=== PATIENT | male | born 1950 | race Two or more races ===

== ENCOUNTER 2018-05-31 11:41 | Emergency (ER) | payer MEDICARE ==
[~2018-05-31] VITALS: Ht 172.7 cm; Wt 68.0 kg
--- NOTE | 2018-05-31 12:10 | NUR ---
PATIENT CAME TO ER AMBULATORY. C/O SOB AND DYSPNEA SINCE ARRIVING FROM THE [facility]. PATIENT AAO X 3, NO ACUTE DISTRESS AT THIS TIME. AT BEDSIDE
--- NOTE | 2018-05-31 12:15 | NUR ---
DR. MARTINEZ AT BEDSIDE
[2018-05-31 12:21] LABS: BASOPHILS % (AUTO) 0.3 % (0.0-2.0); EOSINOPHILS % (AUTO) 0.4 % (0.0-6.0); HEMATOCRIT 34 % (39-51); HEMOGLOBIN 11.1 g/dL (13.5-17.5); LYMPHOCYTES # (AUTO) 0.5 /CMM (0.8-4.8); LYMPHOCYTES % (AUTO) 6.1 % (20.0-44.0); MEAN CORPUSCULAR HGB CONC 33 g/dl (31.0-36.0); MEAN CORPUSCULAR VOLUME 92 fL (80-96); MONOCYTES # (AUTO) 0.8 /CMM (0.1-1.30); MONOCYTES % (AUTO) 9.4 % (2.0-12.0); NEUTROPHILS # (AUTO) 7.3 /CMM (1.8-8.9); NEUTROPHILS % (AUTO) 83.8 % (43.0-81.0); PLATELET COUNT (AUTO) 246 /CMM (150-450); RED BLOOD CELL COUNT(AUTO) 3.69 MIL/uL (4.5-6.0); WHITE BLOOD COUNT (AUTO) 8.8 K/uL (4.3-11.0)
[2018-05-31 12:29] LABS: CALCIUM, SERUM 8.8 mg/dL (8.5-10.1); CREATININE 0.9 mg/dL (0.6-1.3); POTASSIUM 3.8 mmol/L (3.5-5.1)
[2018-05-31] MEDS ORDERED: [UNRECOGNIZED DRUG - OTHER] PO (12:50)
[2018-05-31] MEDS ORDERED: TRIMETAZIDINE PO (12:50)
[2018-05-31] MEDS ORDERED: OXYC10TA49 PO (12:50)
[2018-05-31] MEDS ORDERED: MULT-24 PO (12:50)
[2018-05-31] MEDS ORDERED: VITA1TAB56 PO (12:50)
[2018-05-31] MEDS ORDERED: RIVA10TA PO (12:50)
[2018-05-31] MEDS ORDERED: PREG150C PO (12:50)
[2018-05-31] MEDS ORDERED: IOHEXOL-350 100 ML VIAL IV ONE (13:09)
[2018-05-31] MEDS ORDERED: IV NS 0.9% 250 ML IV ONE (13:09)
[2018-05-31] MEDS ORDERED: CT SWABBABLE VALVE TRANS SET 1 EA INFUS.SET MC ONE (13:09)
[2018-05-31] MEDS ORDERED: MORPHINE SULFATE INJ 2 MG/ML DISP.SYRIN ONE (15:51)
[2018-05-31] MEDS ORDERED: ONDANSETRON HCL/PF 4 MG/2 ML VIAL ONE (15:51)
[2018-05-31] MEDS ORDERED: MORPHINE SULFATE INJ 2 MG/ML DISP.SYRIN IV ONE (16:00)
[2018-05-31] MEDS ORDERED: ONDANSETRON HCL/PF 4 MG/2 ML VIAL IV ONE (16:00)
--- NOTE | 2018-05-31 16:29 | NUR ---
Report given to Marva HUMPHRIES for continuity of care
--- NOTE | 2018-05-31 17:45 | NUR ---
DR ENRIQUE AT BEDSIDE
--- NOTE | 2018-05-31 18:29 | NUR ---
IV removed. Catheter intact and site benign. Pressure and 4x4 applied to site. No bleeding noted.
--- NOTE | 2018-05-31 18:30 | NUR ---
PT. VERBALIZED UNDERSTANDING OF AFTERCARE INSTRUCTIONS.Patient discharged to home in stable condition. Written and verbal after care instructions given. Patient verbalizes understanding of instruction.
[2018-05-31 18:42] VITALS: BP 130/70
[2018-06-01] MEDS ORDERED: OXYCODONE IR PO (10:12)
[2018-06-01] MEDS ORDERED: AMLO5TAB9 PO (11:02)
== END 2018-05-31 18:44 | disposition home or self-care (01) ==
LOC: ER 11:47 → UNDOADMIN 16:04 → TELE 16:04
DX: J90 Pleural effusion, not elsewhere classified (principal); R06.00 Dyspnea, unspecified; Z85.89 Personal history of malignant neoplasm of other organs and systems
CPT/HCPCS: 36415; 71045; 71275; 80048; 82040; 84484; 85025; 85730; 93005; 93307; 96374; 96375; 99284; J2270; J2405; J7050; Q9967

== ENCOUNTER 2018-06-01 09:04 | Inpatient (IN) | payer MEDICARE ==
[~2018-06-01] VITALS: Ht 167.6 cm; Wt 76.2 kg
[~2018-06-01 09:04] MED LIST: MULT-24 PO; OXYC10TA49 PO; PREG150C PO; RIVA10TA PO; TRIMETAZIDINE PO; VITA1TAB56 PO; [UNRECOGNIZED DRUG - OTHER] PO
--- NOTE | 2018-06-01 09:15 | NUR ---
PT BIB C/O SOB SINCE LAST NIGHT "I FEEL LIKE I COULDN'T BREATH", PT IS AAOX4, NOTED SHORTNESS OF BREATH, HOOKED TO 02 AT 2LPM VIA NC, V/S STABLE, HOOKED TO MONITOR, KEPT RESTED AND COMFORTABLE, WILL CONTINUE TO MONITOR.
--- NOTE | 2018-06-01 09:30 | NUR ---
SEEN AND EXAMINED BY DR. BROWN.
--- NOTE | 2018-06-01 09:31 | NUR ---
IV LINE ESTABLISHED, LABS DRAWNED AND SENT TO LAB.
--- NOTE | 2018-06-01 09:34 | NUR ---
OPTICAL LATHE OPERATOR AT BEDSIDE FOR XRAY.
[2018-06-01 09:53] LABS: CALCIUM, SERUM 8.6 mg/dL (8.5-10.1); CREATININE 1.1 mg/dL (0.6-1.3); POTASSIUM 3.8 mmol/L (3.5-5.1)
[2018-06-01 09:54] LABS: BASOPHILS # (AUTO) 0.1 /CMM (0.0-0.2); BASOPHILS % (AUTO) 0.6 % (0.0-2.0); EOSINOPHILS % (AUTO) 0.6 % (0.0-6.0); HEMATOCRIT 34 % (39-51); HEMOGLOBIN 11.4 g/dL (13.5-17.5); LYMPHOCYTES # (AUTO) 0.5 /CMM (0.8-4.8); LYMPHOCYTES % (AUTO) 5.4 % (20.0-44.0); MEAN CORPUSCULAR HGB CONC 34 g/dl (31.0-36.0); MEAN CORPUSCULAR VOLUME 91 fL (80-96); MONOCYTES # (AUTO) 0.8 /CMM (0.1-1.30); MONOCYTES % (AUTO) 9.4 % (2.0-12.0); NEUTROPHILS # (AUTO) 7.4 /CMM (1.8-8.9); PLATELET COUNT (AUTO) 263 /CMM (150-450); RED BLOOD CELL COUNT(AUTO) 3.71 MIL/uL (4.5-6.0); WHITE BLOOD COUNT (AUTO) 8.8 K/uL (4.3-11.0)
[2018-06-01] MEDS ORDERED: OXYCODONE IR PO (10:12)
[2018-06-01] MEDS ORDERED: AMLO5TAB9 PO (11:02)
[2018-06-01] MEDS ORDERED: oxyCODONE HCL SR 10MG TAB.SR.12H PO SCH (15:00)
--- NOTE | 2018-06-01 15:27 | NUR ---
CALLED NURSING SUP. FOR TELE BED
--- NOTE | 2018-06-01 15:52 | NUR ---
TELE 108
[2018-06-01 16:00] VITALS: BP 136/91
--- NOTE | 2018-06-01 16:00 | NUR ---
REPORT GIVEN TO KRISTEL HIGHTOWER FOR KENDAL.
[2018-06-01 16:25] VITALS: BP 136/91
--- NOTE | 2018-06-01 16:25 | NUR ---
RN NOTE: RECEIVED PATIENT IN ROOM 108, PATIENT WAS TRANSPORTED VIA STRETCHER ACCOMPANIED BY THE ER NURSE, KRISHAN AND MARCY, PATIENT'S SON. PATIENT ALERT, ORIENTED AND VERBALLY RESPONSIVE. ON O2 2L/MIN VIA NC SATURATING 95%. DENIED ANY PAIN AT THIS TIME. PATIENT WALKED TO HIS BED AND WAS PLACED ON A UPRIGHT POSITION. COMPLETE BODY ASSESSMENT WAS DONE. AFEBRILE. SKIN WARM TO TOUCH. (R) AC 20G WAS NOTED PATENT AND INTACT WITH TRANSPARENT DRESSING. ATTACHED PATIENT TO THE ASSOCIATE DEAN SR HR= 85. BED LOCKED AT ALL TIMES AND PLACED ON THE LOWEST POSITION. CALL LIGHT WITHIN REACH. NEEDS ANTICIPATED. CALLED AND PAGED DR. ENRIQUE IN ORDER TO INFORM HIM ABOUT THE PATIENT'S ADMISSION TO THE UNIT AND FOR ADMITTING ORDERS. PATIENT'S HOME MEDICATIONS WERE LISTED ON THE SYSTEM FOR THE MD TO DO MED. RECONCILIATION. MRSA NARE SWABBING DONE AT ER.
[2018-06-01] MEDS ORDERED: ZOLPIDEM TARTRATE 5 MG TABLET PO PRN (17:30)
--- NOTE | 2018-06-01 19:25 | NUR ---
RN NOTE: BEDSIDE REPORT GIVEN TO THE PM SHIFT NURSE FOR CONTINUITY OF CARE. PATIENT WAS ASLEEP AT THE BED WITH HIS , ERLL PRESENT AT THE BEDSIDE.
[2018-06-01 20:00] VITALS: BP 136/79
[2018-06-01] MEDS: PREGABALIN 25 MG CAPSULE PO SCH (20:08)
[2018-06-01] MEDS: PREGABALIN 100 MG CAPSULE PO SCH (20:08)
[2018-06-02] VITALS: BP 123/69
[2018-06-02 04:00] VITALS: BP 144/86
--- NOTE | 2018-06-02 05:49 | NUR ---
RN NOTES RECEIVED PATIENT AWAKE IN BED WITH FAMILY AT BEDSIDE. NO DISTRESS NOTED. BREATHING EVEN AND UNLABORED. 02 VIA NASAL CANNULA WELL TOLERATED. FOR PLEURX INSERTION IN AM. NPO AFTER MIDNIGHT. VITAL SIGNS WNL. PATIENT'S HOME MED TRIMETAZIDINE 35MG IS NOT AVAILABLE IN [place]. WILL ENDORSE TO ASK MD'S RECOMMENDATION FOR REPLACEMENT. CONSENT SIGNED. WILL ENDORSE TO NEXT SHIFT FOR CONTINUITY OF CARE.
[2018-06-02 06:22] LABS: ALBUMIN 2.6 g/dL (3.4-5.0); BILIRUBIN,TOTAL 0.6 mg/dL (0.2-1.0); CALCIUM, SERUM 8.6 mg/dL (8.5-10.1); CREATININE 0.8 mg/dL (0.6-1.3); MAGNESIUM 2.1 mg/dL (1.8-2.4); PHOSPHORUS 3.8 mg/dL (2.5-4.9)
[2018-06-02 06:57] LABS: BASOPHILS % (AUTO) 0.5 % (0.0-2.0); EOSINOPHILS % (AUTO) 1.2 % (0.0-6.0); HEMATOCRIT 25 % (39-51); HEMOGLOBIN 8.4 g/dL (13.5-17.5); LYMPHOCYTES # (AUTO) 0.5 /CMM (0.8-4.8); LYMPHOCYTES % (AUTO) 7.5 % (20.0-44.0); MEAN CORPUSCULAR HGB CONC 34 g/dl (31.0-36.0); MEAN CORPUSCULAR VOLUME 93 fL (80-96); MONOCYTES # (AUTO) 0.8 /CMM (0.1-1.30); MONOCYTES % (AUTO) 11.9 % (2.0-12.0); NEUTROPHILS # (AUTO) 5.6 /CMM (1.8-8.9); NEUTROPHILS % (AUTO) 78.9 % (43.0-81.0); PLATELET COUNT (AUTO) 160 /CMM (150-450); RED BLOOD CELL COUNT(AUTO) 2.71 MIL/uL (4.5-6.0); WHITE BLOOD COUNT (AUTO) 7.2 K/uL (4.3-11.0)
--- NOTE | 2018-06-02 07:35 | NUR ---
RN NOTE: RECEIVED PATIENT IN BED, AWAKE, ALERT AND VERBALLY RESPONSIVE. ON O2 2L/MIN VIA NC SATURATING 96%. DENIED ANY PAIN AT THIS TIME. BED ON LOWEST POSITION AND LOCKED AT ALL TIMES. ON RACK CLEANER SR HR= 85. (R) AC IV SITE NOTED PATENT AND INTACT. CALL LIGHT WITHIN REACH. NEEDS ANTICIPATED. PATIENT AWAITING FOR THE PLEURX INSERTION WITH DR. HATHAWAY TODAY.
--- NOTE | 2018-06-02 07:55 | NUR ---
RN NOTE: RECEIVED AN ORDER FROM DR. ENRIQUE TO KEEP THE PATIENT NPO. ORDER, NOTED AND CARRIED OUT. PATIENT MADE AWARE.
[2018-06-02 08:00] VITALS: BP 132/75
--- NOTE | 2018-06-02 08:14 | NUR ---
RN NOTE: DR. ENRIQUE PRESENT IN THE UNIT AT THIS TIME. CLARIFIED WITH HIM IF PATIENT CAN TAKE HIS PO MEDICATIONS INCLUDING A BP MED (NORVASC). PER MD, OK TO KEEP NPO EXCEPT MEDS. ORDER CLARIFIED, NOTED AND CARRIED OUT. PATIENT MADE AWARE.
[2018-06-02] MEDS: MULTIVITAMINS,THERAGRAN 1 UDTAB TABLET PO SCH (08:41)
[2018-06-02] MEDS: VITAMIN B COMP W-C 1 TAB TABLET PO SCH (08:41)
[2018-06-02] MEDS ORDERED: AMLODIPINE BESYLATE 5 MG TABLET PO SCH (09:00)
[2018-06-02] MEDS ORDERED: ANESTHESIA TRAY IN PYXIS 1 EA TRAY MC ONE (09:48)
[2018-06-02] MEDS ORDERED: LIDOCAINE HCL/PF 1% 30 ML SDV ONE (09:48)
[2018-06-02] MEDS ORDERED: HEPARIN SODIUM, PORCINE 1,000 UNIT/ML VIAL ONE (09:48)
[2018-06-02] MEDS: HYDROCODONE/APAP 10/325MG 1 EA TABLET PO PRN ×3 (10:00→19:46)
--- NOTE | 2018-06-02 11:33 | NUR ---
RN NOTE: INFORMED DR. ENRIQUE THAT ACCORDING TO THE SURGERY DEPARTMENT AND ASKED THEM ABOUT THE PICK-UP TIME FOR THE PATIENT FOR THE PLEURX INSERTION. PER THE OR STAFF, DR. HATHAWAY CANCELLED THE PROCEDURE TODAY AND WAS PLANNING TO RESCHEDULE THE PROCEDURE. PER DR. ENRIQUE, OK TO FEED THE PATIENT FOR TODAY. PATIENT MADE AWARE.
[2018-06-02] MEDS: Z GUARD REMEDY 2 OZ OINT TP SCH (15:38)
[2018-06-02 16:00] VITALS: BP 120/65
--- NOTE | 2018-06-02 16:15 | NUR ---
RN NOTE: RECEIVED A PHONE CALL FROM DR. HATHAWAY AND HE ORDERED TO KEEP THE PATIENT NPO AFTER MIDNIGHT FOR THE PLEURX INSERTION FOR TOMORROW AT 1500. PATIENT AND , RELL PRESENT AT THE BEDSIDE WAS MADE AWARE.
[2018-06-02] MEDS ORDERED: VOLTAREN 1% TP PRN (17:00)
[2018-06-02] MEDS: PREGABALIN 100 MG CAPSULE PO SCH (17:38)
[2018-06-02] MEDS: PREGABALIN 25 MG CAPSULE PO SCH (17:38)
--- NOTE | 2018-06-02 19:45 | NUR ---
RN NOTE: BEDSIDE REPORT GIVEN TO PM SHIFT NURSE FOR CONTINUITY OF CARE. PATIENT AND , RELL WAS PRESENT AT THE BEDSIDE.
[2018-06-02 19:51] VITALS: BP 119/63
[2018-06-02 20:00] VITALS: BP 119/63
[2018-06-02] MEDS: [UNRECOGNIZED DRUG - OTHER] PO SCH (21:18)
[2018-06-03 04:00] VITALS: BP 123/70
[2018-06-03 05:16] VITALS: BP 123/70
--- NOTE | 2018-06-03 05:30 | NUR ---
MS RN NOTES RECEIVED REPORT FROM LESVIA MARIE. PT AWAKE & RESPONSIVE. NOT IN ANY DISTRESS. NO SOB NOTED. PT NOTED TO HAVE PAIN AT L ARM 12/09. REQUESTING FOR PAIN MEDS. PT IS NPO P MN FOR PLEUREX INSERTION TODAY. WILL F/U WITH RE PAIN MEDS. CALL LIGHT WITHIN REACH. BED IN LOWEST POSITION. SR UP X 2 FOR SAFETY. WILL CONTINUE TO MONITOR.
--- NOTE | 2018-06-03 05:48 | NUR ---
MS RN NOTES CALLED DR ENRIQUE. MADE AWARE RE PT'S CONDITION. WITH NEW ORDERS MADE. ORDERS NOTED AND CARRIED OUT. WILL CONTINUE TO MONITOR.
[2018-06-03] MEDS ORDERED: ONDANSETRON HCL/PF 4 MG/2 ML VIAL IV PRN (06:00)
[2018-06-03] MEDS: HYDROMORPHONE 1 MG/1 ML DISP.SYRIN IV PRN ×4 (06:15→21:55)
--- NOTE | 2018-06-03 06:52 | NUR ---
MS RN NOTES AWAKE & RESPONSIVE. NOT IN ANY DISTRESS. NO SOB NOTED. DENIES ANY PAIN OR DISCOMFORT AT THIS TIME. WITH IV-HL PATENT & INTACT. MONITORED ACCORDINGLY. CALL LIGHT WITHIN REACH. BED IN LOWEST POSITION. SR UP X 2 FOR SAFETY. WILL ENDORSE TO NEXT SHIFT.
[2018-06-03 07:35] LABS: BASOPHILS % (AUTO) 0.4 % (0.0-2.0); HEMATOCRIT 35 % (39-51); HEMOGLOBIN 11.7 g/dL (13.5-17.5); LYMPHOCYTES # (AUTO) 0.8 /CMM (0.8-4.8); LYMPHOCYTES % (AUTO) 9.9 % (20.0-44.0); MEAN CORPUSCULAR HGB CONC 33 g/dl (31.0-36.0); MEAN CORPUSCULAR VOLUME 91 fL (80-96); MONOCYTES # (AUTO) 1.1 /CMM (0.1-1.30); MONOCYTES % (AUTO) 13.5 % (2.0-12.0); NEUTROPHILS # (AUTO) 6.1 /CMM (1.8-8.9); NEUTROPHILS % (AUTO) 74.2 % (43.0-81.0); PLATELET COUNT (AUTO) 251 /CMM (150-450); RED BLOOD CELL COUNT(AUTO) 3.88 MIL/uL (4.5-6.0); WHITE BLOOD COUNT (AUTO) 8.3 K/uL (4.3-11.0)
[2018-06-03 07:45] LABS: CALCIUM, SERUM 8.7 mg/dL (8.5-10.1); CREATININE 0.7 mg/dL (0.6-1.3); POTASSIUM 4.2 mmol/L (3.5-5.1)
[2018-06-03 08:00] VITALS: BP 129/77
[2018-06-03] MEDS: [UNRECOGNIZED DRUG - OTHER] PO SCH ×2 (08:30→21:28)
[2018-06-03] MEDS: VITAMIN B COMP W-C 1 TAB TABLET PO SCH (08:30)
[2018-06-03] MEDS: MULTIVITAMINS,THERAGRAN 1 UDTAB TABLET PO SCH (08:30)
[2018-06-03] MEDS: Z GUARD REMEDY 2 OZ OINT TP SCH (08:30)
[2018-06-03] MEDS: HYDROCODONE/APAP 10/325MG 1 EA TABLET PO PRN (14:28)
--- NOTE | 2018-06-03 15:14 | NUR ---
PATIENT PICKED UP BY OR STAFF FOR PROCEDURE
[2018-06-03] MEDS ORDERED: FENTANYL PF 100MCG/2ML AMPUL ONE (15:26)
[2018-06-03 16:00] VITALS: BP 106/62
[2018-06-03] MEDS: PREGABALIN 25 MG CAPSULE PO SCH (17:48)
[2018-06-03] MEDS: PREGABALIN 100 MG CAPSULE PO SCH (17:48)
--- NOTE | 2018-06-03 19:41 | NUR ---
PATIENT A/*O X4, VS ARE STABLE , ON 02 2L VIA NC TOLERATING WELL.NEEDS ATTENDED, PAIN MEDS GIVEN SCHEDULED . SON AT BEDSIDE. WILL ENDORSE TO NEXT SHIFT FOR KENDAL.
[2018-06-03 20:00] VITALS: BP 108/60
[2018-06-04] MEDS: HYDROMORPHONE 1 MG/1 ML DISP.SYRIN IV PRN ×3 (02:48→10:34)
[2018-06-04 04:00] VITALS: BP 102/61
[2018-06-04 06:11] LABS: CALCIUM, SERUM 8.7 mg/dL (8.5-10.1); CREATININE 0.8 mg/dL (0.6-1.3); POTASSIUM 4.2 mmol/L (3.5-5.1)
[2018-06-04 06:28] LABS: BASOPHILS % (AUTO) 0.2 % (0.0-2.0); EOSINOPHILS % (AUTO) 0.7 % (0.0-6.0); HEMATOCRIT 35 % (39-51); HEMOGLOBIN 11.7 g/dL (13.5-17.5); LYMPHOCYTES # (AUTO) 0.6 /CMM (0.8-4.8); LYMPHOCYTES % (AUTO) 6.2 % (20.0-44.0); MEAN CORPUSCULAR HGB CONC 33 g/dl (31.0-36.0); MEAN CORPUSCULAR VOLUME 92 fL (80-96); MONOCYTES % (AUTO) 10.9 % (2.0-12.0); NEUTROPHILS # (AUTO) 7.5 /CMM (1.8-8.9); PLATELET COUNT (AUTO) 270 /CMM (150-450); RED BLOOD CELL COUNT(AUTO) 3.86 MIL/uL (4.5-6.0); WHITE BLOOD COUNT (AUTO) 9.2 K/uL (4.3-11.0)
--- NOTE | 2018-06-04 07:00 | NUR ---
RN AM SHIFT NOTE PATIENT ALERT ORIENTED, IV PATENT AND INTACT. SON AT BEDSIDE. BED IN LOW POSITION. DRAINS COVERED WITH STERILE DRESSING. NO RESPIRATORY DISTRESS NOTED. CASE MANAGEMENT PARTICIPATING IN CASE. EDUCATION PROVIDED BY AND MD COUGHLIN NURSE TO PROVIDE EDUCATION REGARDING DRAIN AT HOME CARE. AWATING CASE MANAGEMENT TO FIND HOME HEALTH AGENCY TO MANAGE PATIENT CARE APPROPIATELY MD AWARE. PATIENT IS AWARE OF IMPORTANCE TO FOLLOW UP WITH PRIMARY CARE PROVIDER BRYANT AND ONCOLOGY. CONTINUE TO MONITOR.
[2018-06-04 08:00] VITALS: BP 111/61
[2018-06-04] MEDS ORDERED: KEY,NONCONTROL,TO KEEP IN PYXI 1 EA MC ONE ×2 (08:05→08:07)
[2018-06-04] MEDS: [UNRECOGNIZED DRUG - OTHER] PO SCH (08:39)
[2018-06-04] MEDS: MULTIVITAMINS,THERAGRAN 1 UDTAB TABLET PO SCH (08:39)
[2018-06-04] MEDS: VITAMIN B COMP W-C 1 TAB TABLET PO SCH (08:39)
[2018-06-04] MEDS: Z GUARD REMEDY 2 OZ OINT TP SCH (08:53)
[2018-06-04 12:00] VITALS: BP 111/61
--- NOTE | 2018-06-04 12:15 | NUR ---
GEOSPATIAL INFORMATION SCIENTIST NOTE PATIENT OK FOR DISCHARGE, WILL LEAVE AROUND 2PM TODAY. EDUCATION PROVIDED BY MD AND OK NURSE TO PROVIDE EDUCATION REGARDING DRAIN AT HOME CARE. AWATING CASE MANAGEMENT TO FIND HOME HEALTH AGENCY TO MANAGE PATIENT CARE APPROPIATELY MD AWARE. PATIENT IS AWARE OF IMPORTANCE TO FOLLOW UP WITH PRIMARY CARE PROVIDER BRYANT AND ONCOLOGY. CONTINUE TO MONITOR.
--- NOTE | 2018-06-04 13:56 | NUR ---
WEATHERCASTER NOTE PATIENT OK FOR DISCHARGE, INSTRUCTIONS PROVIDED. VITALS TAKEN WNL BP 104/62 O2 SATURATION WITHOUT OXYGEN 95%. NO REPORTS OF PAIN OR DISCOMFORT.
== END 2018-06-04 14:00 | disposition home health service (06) | DRG 843 ==
LOC: ER 09:04 → TELE1 16:24 → MEDSG1 06-02 10:18
PROVIDERS: ADMIT Internal Medicine; ATTEND Internal Medicine
PROC: 0W9B30Z Drainage of Left Pleural Cavity with Drainage Device, Percutaneous Approach (ICD-10-PCS; principal; 2018-06-03)
PROC: 0W9930Z Drainage of Right Pleural Cavity with Drainage Device, Percutaneous Approach (ICD-10-PCS; 2018-06-03)
DX: C7A.8 Other malignant neuroendocrine tumors (principal); I21.A1 Myocardial infarction type 2; I87.1 Compression of vein; D68.59 Other primary thrombophilia; C78.7 Secondary malignant neoplasm of liver and intrahepatic bile duct; C78.02 Secondary malignant neoplasm of left lung; C78.01 Secondary malignant neoplasm of right lung; J91.0 Malignant pleural effusion; D63.0 Anemia in neoplastic disease; E88.09 Other disorders of plasma-protein metabolism, not elsewhere classified; I10 Essential (primary) hypertension; Z87.891 Personal history of nicotine dependence; Z92.21 Personal history of antineoplastic chemotherapy; Z92.3 Personal history of irradiation; C79.51 Secondary malignant neoplasm of bone; Z86.718 Personal history of other venous thrombosis and embolism; C79.89 Secondary malignant neoplasm of other specified sites
CPT/HCPCS: 36415; 71045-TC; 80048-TC; 80053-TC; 83735-TC; 84100-TC; 85025-TC; 85730-TC; 86850-TC; 87081-TC; 94799-TC; A6402; A6403; G0378; J0690; J1170; J1644; J2704; J3010; J3490